=== PATIENT | female | born 1975 | race Caucasian/White ===

== ENCOUNTER 2020-08-06 22:35 | Observation (INO) ==
[2020-08-06] MEDS ORDERED: 0.9 % Sodium Chloride 1,000 ML IVC ONE (23:18)
[2020-08-06] MEDS ORDERED: Isovue-370 500 ML BOTTLE IVP ONE (23:48)
[2020-08-06] MEDS ORDERED: Ondansetron 4 MG/2 ML VIAL IVP ONE (23:48)
[2020-08-06 23:55] LABS: Basophils # 0.1 K/mcL (0.0-0.2); Basophils % 0.2 %; Eosinophils # 0.4 K/mcL (0.0-0.6); Eosinophils % 2.1 %; Hematocrit 50.2 % (35.3-44.9); Hemoglobin 16.1 g/dL (11.5-15.4); Immature Granulocytes % 0.7 % (0-4); Lymphocytes # 2.4 K/mcL (0.6-4.6); Lymphocytes % 11.1 %; Mean Corpuscular HGB Conc 32.1 g/dL (31.6-35.5); Mean Corpuscular Hemoglobin 26.5 pg (28.0-33.3); Mean Corpuscular Volume 82.7 fL (83.0-100.0); Mean Platelet Volume 10.5 fL (9.4-12.4); Monocytes # 1.4 K/mcL (0.0-1.3); Monocytes % 6.4 %; Platelet Count 450 K/mcL (140-400); Red Blood Count 6.07 M/mcL (3.82-4.97); Red Cell Distribution Width 13.5 % (11.5-14.5); Segmented Neutrophils % 79.5 %; White Blood Count 21.5 K/mcL (4.3-11.1)
[2020-08-07] MEDS ORDERED: 0.9 % Sodium Chloride 1,000 ML IVC STA (00:07)
[2020-08-07 00:17] LABS: Alanine Aminotransferase 20 Units/L (7-52); Albumin 4.3 g/dL (3.5-5.7); Albumin/Globulin Ratio 1.5 (1.1-2.2); Alkaline Phosphatase 71 Units/L (34-104); Aspartate Amino Transferase 13 Units/L (13-39); BUN/Creatinine Ratio 21 (6-26); Bilirubin,Direct 0.1 mg/dL (0.0-0.2); Bilirubin,Indirect 0.3 mg/dL (0.0-1.0); Bilirubin,Total 0.4 mg/dL (0.3-1.0); Blood Urea Nitrogen 15 mg/dL (6-20); Calcium 8.9 mg/dL (8.6-10.3); Carbon Dioxide 23 mEq/L (23-29); Chloride 105 mEq/L (98-107); Globulin 2.8 g/dL (2.4-3.5); Glucose 259 mg/dL (70-105); Lipase 9 Units/L (11-82); Magnesium 1.5 mg/dL (1.6-2.6); Osmolality,Calculated 302 (280-300); Phosphorous 3.8 mg/dL (2.7-4.5); Potassium 3.9 mEq/L (3.5-5.1); Sodium 141 mEq/L (136-145); Total Protein 7.1 g/dL (6.4-8.9); eGFR For African Americans > 60 (> 60); eGFR For Non-African Americans > 60 (> 60)
[2020-08-07 00:18] LABS: Troponin I < 0.03 ng/mL (< 0.04)
[2020-08-07] MEDS ORDERED: *HR* FentaNYL (PF) 100 MCG/2 ML VIAL IVP ONE (00:27)
[2020-08-07 00:28] LABS: Bacteria,Urine Few per hpf (None-Few); Bilirubin,Urine Negative (Negative); Blood,Urine Negative (Negative); Clarity,Urine Clear (Clear); Color,Urine Yellow (Yellow); Glucose,Urine (UA) Normal (Normal); Hyaline Casts,Urine Few per lpf (None Seen); Ketones,Urine 100 mg/dL (Negative); Leukocyte Esterase,Urine Small (Negative); Mucus,Urine Many per lpf (None-Few); Nitrite,Urine Negative (Negative); Protein,Urine 50 mg/dL (Neg-Trace); Specific Gravity,Urine > 1.030 (1.010-1.025); Squamous Epithelial Cell,Urine Few per hpf (None-Few); Urobilinogen,Urine Normal (Normal)
[2020-08-07 00:31] LABS: Thyroid Stimulating Hormone 3.059 mcIU/mL (0.340-5.600)
[2020-08-07] MEDS ORDERED: Magnesium Sulfate 1 GM/102 ML PIGGYBACK IVPB ONE (01:24)
[2020-08-07 02:05] LABS: Amphetamine Screen,Urine Negative ng/mL (Cutoff=1000); Barbiturate Screen,Urine Negative ng/mL (Cutoff=200); Benzodiazepines Screen,Urine Negative ng/mL (Cutoff=200); Cannabinoid Screen,Urine Negative ng/mL (Cutoff = 50); Cocaine Screen,Urine Negative ng/mL (Cutoff= 300); Opiate Screen,Urine Negative ng/mL (Cutoff=300); Phencyclidine Screen,Urine Negative ng/mL (Cutoff=25)
[2020-08-07] MEDS ORDERED: Dextrose Gel 15 GM/37.5 ML TUBE PO PRN ×2 (02:11)
[2020-08-07] MEDS ORDERED: Ondansetron 4 MG/2 ML VIAL IVP PRN (02:11)
[2020-08-07] MEDS ORDERED: Acetaminophen 325 MG TABLET PO PRN (02:11)
[2020-08-07] MEDS ORDERED: Melatonin 3 MG TABLET PO PRN (02:11)
[2020-08-07] MEDS ORDERED: Naloxone 0.4 MG/ML INJ IVP PRN (02:11)
[2020-08-07] MEDS ORDERED: D5% in Water 1,000 ML IVC PRN (02:11)
[2020-08-07] MEDS ORDERED: *HR* HYDROcodone/Acet 5/325 mg TABLET PO PRN (02:11)
[2020-08-07] MEDS ORDERED: *HR* Dextrose 50 % in Water (Vial) 50 ML VIAL IVP PRN (02:11)
[2020-08-07] MEDS ORDERED: Ipratropium/Albuterol Neb 3 ML IH PRN (02:16)
[2020-08-07 04:27] LABS: Basophils % 0.2 %; Eosinophils # 0.5 K/mcL (0.0-0.6); Eosinophils % 2.4 %; Hematocrit 44.6 % (35.3-44.9); Hemoglobin 14.6 g/dL (11.5-15.4); Immature Granulocytes % 0.6 % (0-4); Lymphocytes # 2.5 K/mcL (0.6-4.6); Lymphocytes % 13.4 %; Mean Corpuscular HGB Conc 32.7 g/dL (31.6-35.5); Mean Corpuscular Hemoglobin 27.5 pg (28.0-33.3); Mean Platelet Volume 10.3 fL (9.4-12.4); Monocytes # 1.3 K/mcL (0.0-1.3); Monocytes % 7.1 %; Neutrophils # 14.3 K/mcL (1.6-8.9); Platelet Count 388 K/mcL (140-400); Red Blood Count 5.31 M/mcL (3.82-4.97); Red Cell Distribution Width 13.5 % (11.5-14.5); Segmented Neutrophils % 76.3 %; White Blood Count 18.8 K/mcL (4.3-11.1)
[2020-08-07 04:36] LABS: INR 1.2; Prothrombin Time 13.3 Seconds (9.4-12.1)
[2020-08-07 04:45] LABS: Acetaminophen < 10 mcg/mL (10-20); Creatine Kinase 72 Units/L (30-223); Ethanol < 10 mg/dL (Less than 10); Salicylate < 2.5 mg/dL (15.0-30.0)
[2020-08-07 04:46] LABS: Alanine Aminotransferase 15 Units/L (7-52); Albumin 3.6 g/dL (3.5-5.7); Albumin/Globulin Ratio 1.6 (1.1-2.2); Alkaline Phosphatase 60 Units/L (34-104); Aspartate Amino Transferase 10 Units/L (13-39); BUN/Creatinine Ratio 21 (6-26); Bilirubin,Total 0.4 mg/dL (0.3-1.0); Blood Urea Nitrogen 12 mg/dL (6-20); Carbon Dioxide 24 mEq/L (23-29); Chloride 108 mEq/L (98-107); Globulin 2.3 g/dL (2.4-3.5); Glucose 179 mg/dL (70-105); Magnesium 1.6 mg/dL (1.6-2.6); Osmolality,Calculated 294 (280-300); Phosphorous 3.2 mg/dL (2.7-4.5); Potassium 3.7 mEq/L (3.5-5.1); Sodium 140 mEq/L (136-145); Total Protein 5.9 g/dL (6.4-8.9); eGFR For African Americans > 60 (> 60); eGFR For Non-African Americans > 60 (> 60)
[2020-08-07 04:48] LABS: Chol/HDL Ratio 6.7 (0-4.9)
[2020-08-07] MEDS: Ringers Solution, Lactated 1,000 ML IVC SCH ×2 (04:48→14:47)
[2020-08-07 04:54] LABS: Procalcitonin 0.12 ng/mL (0.00-0.15)
[2020-08-07 05:14] LABS: Folate > 22.3 ng/mL (3.0-16.0); Vitamin B12 312 pg/mL (250-1100)
[2020-08-07 08:14] LABS: Estimated Average Glucose 151 mg/dl; Hemoglobin A1C 6.9 %
[2020-08-07] MEDS: Multivit/Ca/Min/Fe/FA 1 TAB TABLET PO SCH (08:34)
[2020-08-07] MEDS: MetroNIDAZOLE 500 MG/100 ML 500 MG/100 ML BAG IVPB SCH ×3 (08:34→23:59)
[2020-08-07 15:44] LABS: Adenovirus F 40/41 PCR Not detected (Not detect); Astrovirus PCR Not detected (Not detect); C.difficile Toxin A/B Gene PCR Not detected (Not detect); Campylobacter by PCR Not detected (Not detect); Cryptosporidium by PCR Not detected (Not detect); Cyclospora cayetanensis PCR Not detected (Not detect); E. coli O157 by PCR Not detected (Not detect); Entamoeba histolytica PCR Not detected (Not detect); Enteroaggregative E.coli(EAEC) Not detected (Not detect); Enteropathogenic E.coli(EPEC) Not detected (Not detect); Enterotoxigenic E.coli (ETEC) Not detected (Not detect); Giardia lamblia PCR Not detected (Not detect); Norovirus GI/GII PCR Not detected (Not detect); Plesiomonas shigelloides PCR Not detected (Not detect); Rotavirus A PCR Not detected (Not detect); Salmonella PCR Not detected (Not detect); Sapovirus PCR Not detected (Not detect); Shig/EnteroinvasiveE coli EIEC Not detected (Not detect); Shigalike tox-prod E coli STEC Not detected (Not detect); Vibrio PCR Not detected (Not detect); Vibrio cholerae PCR Not detected (Not detect); Yersinia enterocolitica PCR Not detected (Not detect)
[2020-08-07] MEDS ORDERED: SODIUM CHLORIDE/NAHCO3/KCL/PEG 4,000 ML SOLN.RECON PO ONE (17:00)
[2020-08-08 06:01] LABS: Basophils % 0.4 %; Eosinophils # 0.6 K/mcL (0.0-0.6); Hematocrit 38.3 % (35.3-44.9); Immature Granulocytes % 1.4 % (0-4); Lymphocytes # 2.4 K/mcL (0.6-4.6); Lymphocytes % 21.4 %; Mean Corpuscular HGB Conc 32.1 g/dL (31.6-35.5); Mean Corpuscular Hemoglobin 27.1 pg (28.0-33.3); Mean Corpuscular Volume 84.4 fL (83.0-100.0); Mean Platelet Volume 9.8 fL (9.4-12.4); Monocytes # 0.8 K/mcL (0.0-1.3); Monocytes % 7.4 %; Neutrophils # 7.3 K/mcL (1.6-8.9); Platelet Count 302 K/mcL (140-400); Red Blood Count 4.54 M/mcL (3.82-4.97); Red Cell Distribution Width 13.6 % (11.5-14.5); Segmented Neutrophils % 64.4 %; White Blood Count 11.3 K/mcL (4.3-11.1)
[2020-08-08 06:02] LABS: Hemoglobin 12.3 g/dL (11.5-15.4)
[2020-08-08] MEDS ORDERED: Simethicone 40 MG/0.6 ML MLS IR ONE (07:31)
[2020-08-08] MEDS: Multivit/Ca/Min/Fe/FA 1 TAB TABLET PO SCH (08:55)
[2020-08-08] MEDS: MetroNIDAZOLE 500 MG/100 ML 500 MG/100 ML BAG IVPB SCH (08:55)
[2020-08-08 09:47] LABS: BUN/Creatinine Ratio 9 (6-26); Blood Urea Nitrogen 5 mg/dL (6-20); C-Reactive Protein 12 mg/L (Less than 10); Calcium 8.5 mg/dL (8.6-10.3); Carbon Dioxide 27 mEq/L (23-29); Chloride 110 mEq/L (98-107); Glucose 173 mg/dL (70-105); Osmolality,Calculated 299 (280-300); Potassium 3.6 mEq/L (3.5-5.1); Sodium 144 mEq/L (136-145); eGFR For African Americans > 60 (> 60); eGFR For Non-African Americans > 60 (> 60)
[2020-08-08 10:50] VITALS: BP 155/85
[2020-08-08] MEDS ORDERED: *HR* Propofol 500 MG/50 ML BOTTLE IVP ONE (13:03)
[2020-08-08] MEDS ORDERED: Lidocaine -MPF 2% 5 ML VIAL SQ ONE (13:03)
== END 2020-08-08 13:04 | disposition home or self-care (01) ==
LOC: EMEROOARM 22:35 → 3BNU 22:35 → SUATTDRO 08-07 02:29 → 3BNU 08-07 03:10
PROVIDERS: ADMIT Internal Medicine; ATTEND Internal Medicine

== ENCOUNTER 2022-02-28 09:23 | Inpatient (IN) ==
[2022-02-28] MEDS ORDERED: Morphine Sulfate 2 MG/ML SYRINGE IVP ONE ×2 (10:07→21:38)
[2022-02-28] MEDS ORDERED: 0.9 % Sodium Chloride 500 ML IVC ONE ×3 (10:36→13:15)
[2022-02-28 11:09] LABS: Basophils % 0.2 %; Eosinophils # 0.2 K/mcL (0.0-0.6); Eosinophils % 1.2 %; Hematocrit 45.6 % (35.3-44.9); Hemoglobin 15.2 g/dL (11.5-15.4); Immature Granulocytes % 0.6 % (0-4); Lymphocytes # 0.7 K/mcL (0.6-4.6); Lymphocytes % 4.3 %; Mean Corpuscular HGB Conc 33.3 g/dL (31.6-35.5); Mean Corpuscular Hemoglobin 27.1 pg (28.0-33.3); Mean Corpuscular Volume 81.4 fL (83.0-100.0); Mean Platelet Volume 10.3 fL (9.4-12.4); Monocytes # 0.6 K/mcL (0.0-1.3); Monocytes % 3.7 %; Neutrophils # 14.8 K/mcL (1.6-8.9); Platelet Count 336 K/mcL (140-400); Red Cell Distribution Width 13.2 % (11.5-14.5); White Blood Count 16.4 K/mcL (4.3-11.1)
[2022-02-28 11:17] LABS: INR 1.1; Prothrombin Time 12.5 Seconds (9.4-12.1)
[2022-02-28] MEDS ORDERED: Iopamidol - 370 500 ML MLS IVP ONE (11:39)
[2022-02-28 11:40] LABS: Alanine Aminotransferase 25 Units/L (7-52); Albumin 4.6 g/dL (3.5-5.7); Albumin/Globulin Ratio 1.7 (1.1-2.2); Alkaline Phosphatase 77 Units/L (34-104); Aspartate Amino Transferase 14 Units/L (13-39); BUN/Creatinine Ratio 14 (6-26); Bilirubin,Direct 0.1 mg/dL (0.0-0.2); Bilirubin,Indirect 0.6 mg/dL (0.0-1.0); Bilirubin,Total 0.7 mg/dL (0.3-1.0); Blood Urea Nitrogen 13 mg/dL (6-20); Carbon Dioxide 23 mEq/L (23-29); Chloride 101 mEq/L (98-107); Globulin 2.7 g/dL (2.4-3.5); Glucose 362 mg/dL (70-105); Lipase 19 Units/L (11-82); Osmolality,Calculated 297 (280-300); Potassium 4.1 mEq/L (3.5-5.1); Sodium 136 mEq/L (136-145); Thyroid Stimulating Hormone 1.613 mcIU/mL (0.340-5.600); Total Protein 7.3 g/dL (6.4-8.9); Troponin I < 0.03 ng/mL (< 0.04)
[2022-02-28] MEDS ORDERED: MetroNIDAZOLE 500 MG/100 ML 500 MG/100 ML BAG IVPB ONE (11:41)
[2022-02-28] MEDS ORDERED: cefTRIAXone 1,000 MG in 0.9 % Sodium Chloride Mini Bag 100 ML IVPB ONE (11:42)
[2022-02-28 12:06] LABS: VBG HCO3 23 mEq/L (21-27); VBG PCO2 40 mmHg (41-51); VBG PH 7.37 pH Units (7.32-7.42); VBG PO2 99 mmHg (25-50)
[2022-02-28] MEDS ORDERED: Piperacillin/Tazobactam 3.375 GM in 0.9 % Sodium Chloride Mini Bag 100 ML IVPB ONE (12:32)
[2022-02-28] MEDS ORDERED: Aspirin 81 MG TAB.CHEW PO ONE (13:16)
[2022-02-28] MEDS ORDERED: Naloxone 0.4 MG/ML INJ IVP PRN (14:12)
[2022-02-28] MEDS ORDERED: Melatonin 3 MG TABLET PO PRN (14:12)
[2022-02-28] MEDS ORDERED: Ondansetron 4 MG/2 ML VIAL IVP PRN (14:12)
[2022-02-28] MEDS ORDERED: *HR* Dextrose 50 % in Water (Syg) 50 ML SYRINGE IVP PRN (14:21)
[2022-02-28] MEDS ORDERED: D5% in Water 1,000 ML IVC PRN (14:21)
[2022-02-28] MEDS ORDERED: Dextrose Gel 15 GM/37.5 ML TUBE PO PRN ×2 (14:21)
[2022-02-28] MEDS ORDERED: Ringers Solution, Lactated 1,000 ML IVC ONE (15:36)
[2022-02-28 16:25] LABS: Bilirubin,Urine Negative (Negative); Blood,Urine Negative (Negative); Clarity,Urine Clear (Clear); Color,Urine Light-Yellow (Yellow); Glucose,Urine (UA) >=1000 mg/dL (Normal); Ketones,Urine Trace mg/dL (Negative); Leukocyte Esterase,Urine Trace (Negative); Mucus,Urine Few per lpf (None-Few); Nitrite,Urine Negative (Negative); Protein,Urine Trace mg/dL (Neg-Trace); Specific Gravity,Urine > 1.030 (1.010-1.025); Squamous Epithelial Cell,Urine Moderate per hpf (None-Few); Urobilinogen,Urine Normal (Normal)
[2022-02-28] MEDS: Pantoprazole 40 MG VIAL IVP SCH ×2 (16:58→17:33)
[2022-02-28] MEDS: Acetaminophen 325 MG TABLET PO PRN (17:07)
[2022-02-28 17:59] LABS: Adenovirus Not Detected (Not Detect); Bordetella Pertussis Not Detected (Not Detect); Chlamydophila pneumoniae Not Detected (Not Detect); Coronavirus 229E Not Detected (Not Detect); Coronavirus HKU1 Not Detected (Not Detect); Coronavirus NL63 Not Detected (Not Detect); Coronavirus OC43 Not Detected (Not Detect); Human Metapneumovirus Not Detected (Not Detect); Human Rhinovirus/Enterovirus Not Detected (Not Detect); Influenza A Subtype 2009 H1 Not Detected (Not Detect); Influenza B Not Detected (Not Detect); Mycoplasma pneumoniae Not Detected (Not Detect); Parainfluenza Virus 1 Not Detected (Not Detect); Parainfluenza Virus 2 Not Detected (Not Detect); Parainfluenza Virus 3 Not Detected (Not Detect); Parainfluenza Virus 4 Not Detected (Not Detect); Respiratory Syncytial Virus Not Detected (Not Detect); SARS-CoV-2 Not Detected (Not Detect)
[2022-02-28] MEDS: Insulin LISPRO 300 UNITS/3 ML VIAL SUBQ SCH ×2 (18:28→21:05)
[2022-02-28] MEDS ORDERED: RINGERS LACTATED IVC ONE (18:33)
[2022-02-28] MEDS ORDERED: Ringers Solution, Lactated 1,000 ML ONE (18:35)
[2022-02-28 20:35] LABS: C-Reactive Protein 135 mg/L (Less than 10); Troponin I < 0.03 ng/mL (< 0.04)
[2022-02-28] MEDS: Vancomycin 2,000 MG/520 ML IV.SOLN IVPB SCH (20:54)
[2022-02-28] MEDS ORDERED: Ibuprofen 400 MG TABLET PO PRN (21:01)
[2022-02-28] MEDS ORDERED: *HR* Metoprolol 5 MG/5 ML VIAL IVP ONE (21:37)
[2022-02-28] MEDS: Prochlorperazine 10 MG/2 ML VIAL IVP PRN (21:51)
[2022-02-28] MEDS: Ringers Solution, Lactated 1,000 ML IVC SCH (21:55)
[2022-02-28 22:50] LABS: Adenovirus F 40/41 PCR Not detected (Not detect); Astrovirus PCR Not detected (Not detect); C.difficile Toxin A/B Gene PCR Not detected (Not detect); Campylobacter by PCR Not detected (Not detect); Cryptosporidium by PCR Not detected (Not detect); Cyclospora cayetanensis PCR Not detected (Not detect); Entamoeba histolytica PCR Not detected (Not detect); Enteroaggregative E.coli(EAEC) Not detected (Not detect); Enteropathogenic E.coli(EPEC) Not detected (Not detect); Enterotoxigenic E.coli (ETEC) Not detected (Not detect); Giardia lamblia PCR Not detected (Not detect); Norovirus GI/GII PCR DETECTED (Not detect); Plesiomonas shigelloides PCR Not detected (Not detect); Rotavirus A PCR Not detected (Not detect); Salmonella PCR Not detected (Not detect); Sapovirus PCR Not detected (Not detect); Shig/EnteroinvasiveE coli EIEC Not detected (Not detect); Shigalike tox-prod E coli STEC Not detected (Not detect); Vibrio PCR Not detected (Not detect); Vibrio cholerae PCR Not detected (Not detect); Yersinia enterocolitica PCR Not detected (Not detect)
[2022-02-28] MEDS: Ringers Solution, Lactated 1,000 ML IVC ONE (23:25)
[2022-02-28] MEDS ORDERED: Acetaminophen IV 1,000 MG/100 ML BAG IVPB ONE (23:33)
[2022-03-01] MEDS: Ringers Solution, Lactated 1,000 ML IVC ONE (00:40)
[2022-03-01] MEDS ORDERED: *HR* Metoprolol 5 MG/5 ML VIAL IVP ONE ×2 (00:51→05:32)
[2022-03-01] MEDS: Piperacillin/Tazobactam 3.375 GM in 0.9 % Sodium Chloride Mini Bag 100 ML IVPB SCH ×2 (01:18→09:24)
[2022-03-01] MEDS ORDERED: Morphine Sulfate 2 MG/ML SYRINGE IVP PRN (02:00)
[2022-03-01] MEDS: Ringers Solution, Lactated 1,000 ML IVC SCH (02:34)
[2022-03-01 02:51] LABS: Basophils % 0.3 %; Eosinophils % 0.1 %; Hematocrit 36.1 % (35.3-44.9); Hemoglobin 12.3 g/dL (11.5-15.4); Immature Granulocytes % 1.1 % (0-4); Lymphocytes # 1.2 K/mcL (0.6-4.6); Lymphocytes % 12.5 %; Mean Corpuscular HGB Conc 34.1 g/dL (31.6-35.5); Mean Corpuscular Hemoglobin 27.8 pg (28.0-33.3); Mean Corpuscular Volume 81.7 fL (83.0-100.0); Monocytes # 0.4 K/mcL (0.0-1.3); Monocytes % 4.6 %; Neutrophils # 7.6 K/mcL (1.6-8.9); Platelet Count 257 K/mcL (140-400); Red Blood Count 4.42 M/mcL (3.82-4.97); Red Cell Distribution Width 13.2 % (11.5-14.5); Segmented Neutrophils % 81.4 %; White Blood Count 9.3 K/mcL (4.3-11.1)
[2022-03-01 02:59] LABS: INR 1.3; Prothrombin Time 14.2 Seconds (9.4-12.1)
[2022-03-01] MEDS ORDERED: Prochlorperazine 10 MG/2 ML VIAL IVP PRN (03:00)
[2022-03-01 03:01] LABS: Activated Partial Thrombo Time 28.8 Seconds (26.0-36.0)
[2022-03-01 03:06] LABS: Estimated Average Glucose 186 mg/dl; Hemoglobin A1C 8.1 %
[2022-03-01 03:15] LABS: BUN/Creatinine Ratio 14 (6-26); Blood Urea Nitrogen 9 mg/dL (6-20); Calcium 7.8 mg/dL (8.6-10.3); Carbon Dioxide 24 mEq/L (23-29); Chloride 105 mEq/L (98-107); Chol/HDL Ratio 5.4 (0-4.9); Cholesterol 98 mg/dL (< 200); Glucose 237 mg/dL (70-105); HDL Cholesterol 18 mg/dL (40-59); LDL Cholesterol,Calculated 47 mg/dL (< 100); Magnesium 1.1 mg/dL (1.6-2.6); Osmolality,Calculated 290 (280-300); Potassium 3.1 mEq/L (3.5-5.1); Sodium 137 mEq/L (136-145); Triglycerides 167 mg/dL (< 150); Troponin I < 0.03 ng/mL (< 0.04)
[2022-03-01] MEDS ORDERED: Potassium Chloride Elixir 20 MEQ/15 ML UDC PO ONE (04:22)
[2022-03-01] MEDS: Prochlorperazine 10 MG/2 ML VIAL IVP PRN (04:35)
[2022-03-01] MEDS: Calcium Gluconate 1gm/50mL 1 GM/50 ML BAG IVPB SCH ×2 (04:35→05:36)
[2022-03-01] MEDS: Pantoprazole 40 MG VIAL IVP SCH ×2 (04:35→17:18)
[2022-03-01] MEDS: Insulin LISPRO 300 UNITS/3 ML VIAL SUBQ SCH ×4 (09:24→22:27)
[2022-03-01] MEDS: BuPROPion SR (12 HR) 100 MG TABLET PO SCH (09:25)
[2022-03-01] MEDS: Magnesium Oxide 400 MG TABLET PO SCH ×2 (09:25→22:28)
[2022-03-01] MEDS: Cholecalciferol (D-3) 1,000 UNIT (25MCG) TABLET PO SCH (09:25)
[2022-03-01] MEDS: Vancomycin 2,000 MG/520 ML IV.SOLN IVPB SCH (10:28)
[2022-03-01] MEDS: Acetaminophen 325 MG TABLET PO PRN (17:19)
[2022-03-01] MEDS: Simethicone 80 MG TAB.CHEW PO PRN (23:05)
[2022-03-02 03:00] LABS: Basophils % 0.4 %; Eosinophils # 0.3 K/mcL (0.0-0.6); Eosinophils % 3.5 %; Hematocrit 36.8 % (35.3-44.9); Hemoglobin 12.1 g/dL (11.5-15.4); Immature Granulocytes % 0.8 % (0-4); Lymphocytes # 2.1 K/mcL (0.6-4.6); Lymphocytes % 25.1 %; Mean Corpuscular HGB Conc 32.9 g/dL (31.6-35.5); Mean Corpuscular Hemoglobin 27.1 pg (28.0-33.3); Mean Corpuscular Volume 82.3 fL (83.0-100.0); Monocytes # 0.8 K/mcL (0.0-1.3); Monocytes % 8.9 %; Neutrophils # 5.2 K/mcL (1.6-8.9); Platelet Count 217 K/mcL (140-400); Red Blood Count 4.47 M/mcL (3.82-4.97); Red Cell Distribution Width 13.2 % (11.5-14.5); Segmented Neutrophils % 61.3 %; White Blood Count 8.4 K/mcL (4.3-11.1)
[2022-03-02 03:24] LABS: BUN/Creatinine Ratio 7 (6-26); Blood Urea Nitrogen 4 mg/dL (6-20); Calcium 8.1 mg/dL (8.6-10.3); Carbon Dioxide 25 mEq/L (23-29); Chloride 104 mEq/L (98-107); Glucose 224 mg/dL (70-105); Osmolality,Calculated 286 (280-300); Potassium 3.4 mEq/L (3.5-5.1); Sodium 136 mEq/L (136-145)
[2022-03-02] MEDS: Pantoprazole 40 MG VIAL IVP SCH ×2 (06:45→16:22)
[2022-03-02] MEDS: BuPROPion SR (12 HR) 100 MG TABLET PO SCH (09:41)
[2022-03-02] MEDS: Cholecalciferol (D-3) 1,000 UNIT (25MCG) TABLET PO SCH (09:41)
[2022-03-02] MEDS: Insulin LISPRO 300 UNITS/3 ML VIAL SUBQ SCH ×4 (09:46→20:35)
[2022-03-02] MEDS: Simethicone 80 MG TAB.CHEW PO PRN (20:40)
[2022-03-03 07:23] LABS: Basophils % 0.3 %; Eosinophils # 0.2 K/mcL (0.0-0.6); Hematocrit 34.2 % (35.3-44.9); Hemoglobin 11.3 g/dL (11.5-15.4); Immature Granulocytes % 0.3 % (0-4); Mean Corpuscular Hemoglobin 26.6 pg (28.0-33.3); Mean Corpuscular Volume 80.5 fL (83.0-100.0); Mean Platelet Volume 10.1 fL (9.4-12.4); Monocytes # 0.6 K/mcL (0.0-1.3); Monocytes % 9.3 %; Neutrophils # 3.7 K/mcL (1.6-8.9); Platelet Count 234 K/mcL (140-400); Red Blood Count 4.25 M/mcL (3.82-4.97); Red Cell Distribution Width 12.7 % (11.5-14.5); Segmented Neutrophils % 57.1 %; White Blood Count 6.6 K/mcL (4.3-11.1)
[2022-03-03 07:30] VITALS: BP 167/81; PULSE 90; TEMP 98.1; O2SAT 95
[2022-03-03 07:42] LABS: BUN/Creatinine Ratio 9 (6-26); Blood Urea Nitrogen 5 mg/dL (6-20); Calcium 8.1 mg/dL (8.6-10.3); Carbon Dioxide 29 mEq/L (23-29); Chloride 101 mEq/L (98-107); Glucose 241 mg/dL (70-105); Osmolality,Calculated 289 (280-300); Sodium 137 mEq/L (136-145)
[2022-03-03] MEDS: BuPROPion SR (12 HR) 100 MG TABLET PO SCH (08:02)
[2022-03-03] MEDS: Cholecalciferol (D-3) 1,000 UNIT (25MCG) TABLET PO SCH (08:02)
[2022-03-03] MEDS: Insulin LISPRO 300 UNITS/3 ML VIAL SUBQ SCH ×2 (08:03→11:31)
== END 2022-03-03 12:30 | disposition home or self-care (01) | DRG 391 ==
LOC: EMEROOARM 09:23 → 2ANU 09:23 → SUATTDRO 14:11 → 2ANU 15:32 → 2NNU 03-01 01:02 → 2ANU 03-01 11:42
PROVIDERS: ADMIT Internal Medicine; ATTEND Internal Medicine